=== PATIENT | male | born 1980 | race Two or more races ===

== ENCOUNTER 2020-09-08 16:02 | Outpatient (CLI) | payer OTHER | END 2020-09-08 17:18 | disposition home or self-care (01) | LOC: OFIC 805 16:02 | PROVIDERS: ATTEND Otolaryngology Otology & Neurotology | DX: J02.8 Acute pharyngitis due to other specified organisms (principal); M54.2 Cervicalgia; K21.9 Gastro-esophageal reflux disease without esophagitis; J04.0 Acute laryngitis ==